=== PATIENT | female | born 1960 | race Caucasian/White ===

== ENCOUNTER 2019-04-06 14:19 | Outpatient (CLI) | payer MEDICARE, OTHER ==
[2015-09-16 10:21] VITALS: BP 133/86
[2019-04-06 15:10] LABS: BASOPHILS % 0.6 % (0.0-1.5); EOSINOPHILS % 1.6 % (0.0-6.8); MEAN CORPUSCULAR HEMOGLOBIN 28.5 pg (28.0-34.0); MONOCYTES % 4.1 % (0.0-11.0); NEUTROPHILS # 5.9 # k/uL (1.4-7.7)
[2019-04-06 15:17] LABS: eGFR (Non-African) > 60
[2019-04-06 17:03] VITALS: BP 151/92
== END 2019-04-06 14:21 ==
LOC: RAD 14:19
PROVIDERS: ATTEND Family Medicine
DX: R55 Syncope and collapse (principal)
CPT/HCPCS: 36415; 80053; 84484; 85025

== ENCOUNTER 2019-04-06 15:41 | Emergency (ER) | payer MEDICARE, OTHER ==
[2019-04-06] MEDS ORDERED: ASPIRIN 81 MG CHEW TAB PO ONE (15:48)
--- NOTE | 2019-04-06 15:52 | ED Physician Documentation ---
Dyspnea - HISTORIAN Historian: patient - HPI Chief Complaint: Asthma Onset: days ago (48 hours) Further Comments: yes (Patient sent to hospital for lab, EKG and CT by Dr Tosin Mcneil. Patient was seen in office this morning and reported increased SOB for the past 2 days, patient reports she has a syncopal episode yesterday. Patient states she had been going back and forth to the bathroom, had significant SOB, and woke up in the bed. She is unsure how she got there, "assumed I passed out". Patient reports increased stress lately. Reports increased shortness of breath the past 2 weeks, worse the past 2 days.) - ROS CONST: no problems EYES/ENT: none GI/: none. denies: vomiting, nausea NEURO/PSYCH: denies: headache MS/SKIN/LYMPH: none - PAST HX Lung Disease: COPD Other History: other (chronic back pain, GERD, anxiety) Allergies/Adverse Reactions: Allergies Allergy/AdvReac Type Severity Reaction Status Date / Time clindamycin Allergy Unknown Verified 04/06/19 16:30 Penicillins Allergy Unknown Verified 04/06/19 16:30 acetaminophen Allergy Verified 04/06/19 16:30 [From Darvocet-N 100] propoxyphene napsylate Allergy Verified 04/06/19 16:30 [From Darvocet-N 100] Home Medications: Ambulatory Orders Medication Instructions Recorded Omeprazole [Prilosec] 20 mg PO BID 05/19/13 - SOCIAL HX Smoking History: cigarettes - FAMILY HX Family History: denies: none - VITAL SIGNS Vital Signs: Vital Signs Temp Pulse Resp BP Pulse Ox 133/86 09/16/15 10:19 - REVIEWED ASSESSMENTS Nursing Assessment Reviewed: Yes Vitals Reviewed: Yes Progress - Progress Progress: Patient brought over from radiology - O2 applied, aspirin given. Patient denies chest pain - EKG/XRAY/CT EKG: rhythm (Inferior and lateral T-wave inversion; 3mm elevation in anterior leads V2-3) - Additional EKG/XRAY/Consults Time Called: 16:25 Consult/PCP: [facility] cardiology Reason/Comments: Accepted by Dr Vasquez at 1638 ED Results Lab/Radiology - Radiology Radiology Impressions: EXAMINATION: CHEST 1VIEW HISTORY: PCXR, SOA, ELEVATED TROP COMPARISON: None FINDINGS: Given hypoinflation, there is no focal consolidation, pleural effusion, or pneumothorax. The cardiomediastinal silhouette is normal. The visible bony thorax is intact. IMPRESSION: Hypoinflation without acute pulmonary process. Electronically signed on April 06, 2019 4:04:46 PM CDT by: Robert Healy - Orders Orders: ED Orders Category Date Time Status CHEST 1VIEW [RAD] Stat Exams 04/06/19 15:48 Ordered Aspirin [Sana] Med 04/06/19 15:48 Once 324 mg PO NOW ONE Dyspnea Physical Exam - EXAM General Appearance: mild distress, anxious EENT: eye inspection normal, IVELISSE Respiratory: no resp. distress, breath sounds nml, no pain on inspiration, speaks full sentences, decreased air movement (bases), other (O2 placed a 2L) CVS: reg. rate & rhythm, no murmur, no gallop, no friction rub, pulses full, pulses equal Skin: color nml, no rash, warm, nml palp., dry Extremities: non-tender, normal range of motion, no evidence of injury, no edema, J, EXTERNAL AUDITOR Neuro/Psych: oriented x3, CN's nml as tested, motor nml, sensation nml, mood/affect nml Discharge Clincal Impression: Lateral myocardial infarction AMI (acute myocardial infarction) Qualifiers: Myocardial infarction type: unspecified Involved coronary artery: other inferior wall coronary artery Qualified Code(s): I21.19 - ST elevation (STEMI) myocardial infarction involving other coronary artery of inferior wall COPD (chronic obstructive pulmonary disease) Qualifiers: COPD type: unspecified COPD Qualified Code(s): J44.9 - Chronic obstructive pulmonary disease, unspecified Referrals: Tosin Mcneil MD [Primary Care Provider] - 2 Days Disposition: 02 XFER SHT-TRM HOSP Decision to Admit: NO Decision Time: 16:41
[2019-04-06] MEDS ORDERED: METOPROLOL TARTRATE 5 MG/5 ML VIAL IV ONE (16:27)
[2019-04-06] MEDS ORDERED: FUROSEMIDE 40 MG/4 ML VIAL IVP ONE (16:27)
[2019-04-06 17:03] VITALS: BP 151/92
--- NOTE | 2019-04-06 18:14 | Diagnostic Imaging Report ---
ELADIO AVELAR (HOME [employer] MECH[employer]IC) - ER [facility] [id number] [facility].[address] [address] Report Submission Date: April 06, 2019 4:04:46 PM CDT Patient Study Name: CHERYL MASON Date: April 06, 2019 3:46:03 PM CDT Modality Type: DX Gender: F Description: CHEST 1VIEW : 56 Institution: [facility] Physician: ELADIO AVELAR (HOME [employer] MECHANIC) - ER EXAMINATION: CHEST 1VIEW HISTORY: PCXR, SOA, ELEVATED TROP COMPARISON: None FINDINGS: Given hypoinflation, there is no focal consolidation, pleural effusion, or pneumothorax. The cardiomediastinal silhouette is normal. The visible bony thorax is intact. IMPRESSION: Hypoinflation without acute pulmonary process. Electronically signed on April 06, 2019 4:04:46 PM CDT by: Robert GARRETT
== END 2019-04-06 16:52 | disposition short-term general hospital (02) ==
LOC: ED 15:41
DX: I21.19 ST elevation (STEMI) myocardial infarction involving other coronary artery of inferior wall (principal); J44.9 Chronic obstructive pulmonary disease, unspecified
CPT/HCPCS: 36415; 71045; 83880; 96374; 96375; 99285; J1940; J3490; S1016